=== PATIENT | male | born 1935 | race Caucasian/White ===

== ENCOUNTER → 2016-09-26 | Outpatient (CLI) | payer MEDICARE, OTHER ==
[~2016-09-26] MED LIST: ALBUTEROL 0.083% (NEB) 2.5 MG/3 ML AMP ONE
[2016-09-26 13:23] LABS: AADO2 Arterial 46.6 mmHg (7.0-24.0); Allen Test ACCEPTAB; Arterial Base Excess 2.4 mmol/L (-3.0-3); Arterial COHb 0.3 % (0.0-3.0); Arterial Fraction of Oxyhgb 89.7 % (93.0-99.0); Arterial HCO3 26.2 mmol/L (22.0-26.0); Arterial MetHb 0.1 % (0.0-1.5); Arterial Total Hemglobin 13.9 g/dl (12.0-18.0); MODE ROOM AIR
== END | disposition home or self-care (01) ==
LOC: PUL 13:03
PROVIDERS: ATTEND Internal Medicine
DX: R06.02 Shortness of breath (principal); J44.9 Chronic obstructive pulmonary disease, unspecified
CPT/HCPCS: 36600; 82803; 94060; 94726; 94729